=== PATIENT | female | born 1945 | race Caucasian/White ===

== ENCOUNTER 2019-02-21 10:44 | Inpatient (IN) | payer MEDICARE ==
[~2019-02-21] VITALS: Ht 165.1 cm; Wt 102.0 kg
[~2019-02-21 10:44] MED LIST: AMLO10 PO; CEPH500 PO; LOSARTAN-HCTZ1 EACH PO; METO50 PO; OMEP20ER PO
[2019-02-21 11:56] LABS: BASOPHILS ABSOLUTE AUTO 0.07 K/mm3 (0.00-0.23); BASOPHILS PERCENT AUTO 0 % (0-2); EOSINOPHILS ABSOLUTE AUTO 0.16 K/mm3 (0.00-0.68); EOSINOPHILS PERCENT AUTO 1 % (0-6); Hematocrit 46.7 % (33.0-51.0); Hemoglobin 15.6 g/dL (11.5-16.0); IMMATURE GRAN ABSOLUTE AUTO 0.21 K/mm3 (0.00-0.10); IMMATURE GRAN PERCENT AUTO 1 % (0-1); LYMPHOCYTES ABSOLUTE AUTO 3.98 K/mm3 (0.84-5.20); LYMPHOCYTES PERCENT AUTO 17 % (21-46); MONOCYTES ABSOLUTE AUTO 1.54 K/mm3 (0.16-1.47); MONOCYTES PERCENT AUTO 7 % (4-13); Mean Corpuscular HGB Conc 33.4 g/dL (31.5-36.5); Mean Corpuscular Volume 87 fL (80-100); Mean Platelet Volume 10.5 fL (9.1-12.4); NEUTROPHILS ABSOLUTE AUTO 17.05 K/mm3 (1.96-9.15); NEUTROPHILS PERCENT AUTO 74 % (41-73); Platelet Count 351 K/mm3 (150-400); RDW Coefficient Variation 13.1 % (11.7-14.2); RDW Standard Deviation 41.5 fL (35.1-46.3); Red Blood Cell Count 5.38 M/mm3 (3.80-5.20); White Blood Cell Count 23.01 K/mm3 (4.00-11.30)
[2019-02-21 12:18] LABS: Troponin I <0.015 ng/mL (0.000-0.040)
[2019-02-21 12:19] LABS: Alanine Aminotransfer (ALT/SGP 20 U/L (12-78); Albumin, Blood 3.6 g/dL (3.4-5.0); Alk Phos 109 U/L (50-136); Anion Gap 7 mmol/L (6-16); Aspartate Aminotrans (AST/SGOT 14 U/L (12-37); Bilirubin, Total 0.8 mg/dL (0.1-1.0); Blood Urea Nitrogen 20 mg/dL (8-24); Bun/Creatinine Ratio 17.7 (12.0-20.0); CO2, Blood 30 mmol/L (21-32); Calcium, Blood 9.6 mg/dL (8.5-10.1); Chloride, Blood 88 mmol/L (98-108); Creatinine, Blood 1.13 mg/dL (0.40-1.00); Globulin, Blood 3.6 g/dL (2.2-4.0); Glomerular Filtration Rate 50 (60-); Glucose, Blood 118 mg/dL (70-99); Potassium, Blood 3.5 mmol/L (3.5-5.5); Sodium, Blood 125 mmol/L (136-145); Total Protein, Blood 7.2 g/dL (6.4-8.2)
[2019-02-21] MEDS ORDERED: BUDE6HFA INH (13:00)
[2019-02-21] MEDS ORDERED: ALBU3IS NEB (13:00)
[2019-02-21] MEDS ORDERED: Flonase 0.05% N16 GM (13:00)
[2019-02-21] MEDS ORDERED: Ventolin/Prove6.7 GM INH (13:01)
[2019-02-21] MEDS ORDERED: ATORVASTATIN CA10 MG PO (13:01)
--- NOTE | 2019-02-21 18:33 | NUR ---
SHIFT SUMMARY ELIE ARRIVED FROM ER THIS AFTERNOON. COMPLAINED OF BACK PAIN, BUT TYLENOL AND IBUPROFEN AND HEAT WORKED WELL. ON 2.5L OXYGEN (BASELINE). SBA TO BR. HAD BM THIS SHIFT. TOOK MEDS PRESCRIBED. CALL LIGHT IN REACH, WCTM
--- NOTE | 2019-02-21 22:45 | NUR ---
spoke to Rashida Nichols NP per patient requesting her prilosec as she takes it at home at bedtime. received orders per EMAR
[2019-02-22 04:53] LABS: Hemoglobin 14.5 g/dL (11.5-16.0); Mean Corpuscular HGB 29.3 pg (26.0-34.0); Mean Corpuscular HGB Conc 34.5 g/dL (31.5-36.5); Mean Corpuscular Volume 85 fL (80-100); Mean Platelet Volume 10.5 fL (9.1-12.4); Platelet Count 330 K/mm3 (150-400); RDW Coefficient Variation 13.1 % (11.7-14.2); RDW Standard Deviation 40.1 fL (35.1-46.3); Red Blood Cell Count 4.95 M/mm3 (3.80-5.20); White Blood Cell Count 16.11 K/mm3 (4.00-11.30)
[2019-02-22 05:17] LABS: Calcium, Blood 9.4 mg/dL (8.5-10.1); Creatinine, Blood 1.39 mg/dL (0.40-1.00)
--- NOTE | 2019-02-22 17:14 | NUR ---
SUMMARY PT SITTING UP AT THE BEDSIDE WATCHING TV AND TALKING ON THE PHONE, PT HAS BEEN MOSTLY INDEPENDENT IN THE ROOM, PLEASANT AND COOPERATIVE WITH CARE, USES THE CALL LIGHT APPROPRIATELY, REMAINS ON 2.5L NC, VSS, NO ACUTE CHANGES, WILL CONT TO MONITOR
[2019-02-23 05:07] LABS: Hemoglobin 13.5 g/dL (11.5-16.0); Mean Corpuscular HGB Conc 34.6 g/dL (31.5-36.5); Mean Corpuscular Volume 84 fL (80-100); Mean Platelet Volume 10.3 fL (9.1-12.4); Platelet Count 298 K/mm3 (150-400); RDW Coefficient Variation 12.9 % (11.7-14.2); RDW Standard Deviation 39.3 fL (35.1-46.3); Red Blood Cell Count 4.66 M/mm3 (3.80-5.20); White Blood Cell Count 24.34 K/mm3 (4.00-11.30)
[2019-02-23 05:34] LABS: Bun/Creatinine Ratio 29.1 (12.0-20.0); Calcium, Blood 8.7 mg/dL (8.5-10.1); Creatinine, Blood 1.1 mg/dL (0.40-1.00); Potassium, Blood 4.4 mmol/L (3.5-5.5)
--- NOTE | 2019-02-23 07:36 | NUR ---
PATIENT DID NOT TOLERATE IVF WELL. SHE WASNT ABLE TO BE STILL AND LET THEM RUN, AND BECAME MORE AND MORE IRRITABLE THEN IRATE THE EVENRING WENT ON. FINALLY THE IVF WERE STOPPED AT HER INSISTANCE.. SHE IS NOW RESTING MORE CALMLY. LUNG SOUNDS WERE WHEEZEY T/O
--- NOTE | 2019-02-23 17:10 | NUR ---
SUMMARY PT RESTING QUIETLY IN BED, WAKES EASILY, HAS BEEN INDEPENDENT IN THE ROOM, PLEASANT AND COOPERATIVE WITH CARE, ON 2L NC BASELINE, CARE MANAGEMENT HAS BEEN IN TO TALK WITH THE PT, VSS, NO ACUTE CHANGES, WILL CONT TO MONITOR
--- NOTE | 2019-02-23 17:13 | NUR ---
I SAT PATIENT UP FOR SHOWER YESTERDAY. FIRST SHE SAID WAIT UNTIL DONE WITH BREATHING TREATMENT THEN SHE SAID WAIT UNTIL 2PM AND AT 2PM SHE SAID HER DAUGHTER HAD HER TOO UPSET TO SHOWER. TODAY I HAD PATIENT SAT UP FOR SHOWER AND SHE SAID SHE WAS WAITING FOR FAMILY TO BRING HER CLOTHES. FAMILY NEVER BROUGHT HER CLOTHES AND PATIENT WOULD NOT TAKE HER SHOWER.
--- NOTE | 2019-02-23 18:39 | NUR ---
FALL PT WALKING IN HALLS TO VISIT, DESPITE REPEATED REMINDERS FOR HER TO STAY IN HER ROOM, PT WITH BAGGY PANTS AND OXYGEN TUBING, PT FELL, IT WAS WITNESSED, DR CHARLES NOTIFIED, DIP FILLER'S NOTIFIED, NO APPARENT INJURY
--- NOTE | 2019-02-24 02:03 | NUR ---
CARDIAC: PATIENT CONTINUES TO HAVE BRADYCARDIA 48-58 DURING SLEEP, MAINTAINS SATS IN MID 90'S ON 2.[address] MUNIZ IS NOTIFIED OF LOPRESSOR BEING HELD AT 2100 AND CONTINUED BRADICARDIA. NO NEW ORDERS, CONTINUE TO MONITOR WITH CONT. PULSE OX.
[2019-02-24 05:40] LABS: Bun/Creatinine Ratio 27.4 (12.0-20.0); Calcium, Blood 9.1 mg/dL (8.5-10.1); Creatinine, Blood 1.06 mg/dL (0.40-1.00); Potassium, Blood 4.6 mmol/L (3.5-5.5)
--- NOTE | 2019-02-24 07:24 | NUR ---
SHIFT SUMMARY: PATIENT IS A&OX4, REPORTED OCCIPITAL PAIN 5/10 AT START OF SHIFT, S/P FALL. NEURO ASSESSMANT IS WNL, PO TYLENOL IS GIVEN WITH GOOD EFFECT, NO FURTHER C/O OF OCCIPITAL PAIN AND NEURO ASSESSMENT REMAINS STABLE. PATIENT IS NON COMPLIANT WITH FALL PRECAUTIONS AND DOES NOT RING CALL JAED FOR ASSIST OOB. SETS BED ALARM OF FRQUENTLY. PATIENT IS REPEATEDLY RE-ORIENTED TO THE CALL JADE. VS ARE STABLE AND FALL PRECAUTIONS ARE MAINTAINED.
--- NOTE | 2019-02-24 18:08 | NUR ---
NO ACUTE CHANGES. PATIENT WAITING FOR PLACEMENT. PATIENT IS ALERT AND ORIENTED AND ABLE TO EXPRESS ANY NEEDS. SHE SHOULD BE A ONE ASSIST WITH FFW TO PREVENT FALLS BUT OFTEN JUST GETS UP ON HER OWN AND WONT USE WALKER WITHOUT CONTSTANT REMINDERS. CALL LIGHT WITHIN REACH
--- NOTE | 2019-02-25 06:41 | NUR ---
SHIFT SUMMARY: PATIENT CONTINUES TO BE SOB WITH ACTIVITY AND IS OBSERVED TO HAVE NASAL CANULA ON TOP OF HER HEAD MANY TIMES DURING SHIFT. MAINTAIN SATS IN MID 90'S ON 2.5L NC. REPORTING LOW BACK PAIN AND REFUSES TYLENOL, AQUA PAD IS UTILIZED FOR EFFECTIVE PAIN CONTROL. PATIENT REPORTS NOT SLEPPING WELL THIS SHIFT.
[2019-02-25 08:57] LABS: Bun/Creatinine Ratio 22.3 (12.0-20.0); Creatinine, Blood 1.03 mg/dL (0.40-1.00); Potassium, Blood 3.9 mmol/L (3.5-5.5)
--- NOTE | 2019-02-25 09:22 | NUR ---
she said she fell three days ago, and it was an accident she didnt mean.
--- NOTE | 2019-02-25 16:27 | NUR ---
PATIENT IS A/O AND ABLE TO EXPRESS ANY NEEDS. SHE IS ABLE TO AMBULATE FROM BED TO CHAIR AND AROUND ROOM WHILE ON O2 AND WITH HER FFW. SHE HAS HAD A HEARTY APPETITIE TODAY AND NO COMPLAINTS. NO ACUTE CHANGES WE WAIT FOR PLACEMENT.
--- NOTE | 2019-02-25 20:13 | NUR ---
1930: ASSUMED CARE OF PATIENT. PT SITTING IN CHAIR WATCHING TV. EXCITED TO BE D/C TO [facility] TOMORROW. SON WILL BE COMING IN THE AM. PATIENT MEDS ARE IN PHARMACY AND NEEDS TO RECEVIE THOSE BEFORE D/C. PT DENIES PAIN, NO APPARENT DISTRESS. PT ASKED FOR TYLENOL AT BEDTIME TO HELP HER SLEEP. BED LOW AND LOCKED, CALL JADE WITHIN REACH.
--- NOTE | 2019-02-26 05:56 | NUR ---
SHIFT SUMARY: PATIENT SLEPT LITTLE THIS SHIFT. UP FREQUETLY TO BRP. PT RECEIVED TYLENOL FOR GENERALIZED ACHES. PLEASANT AND COOPERATIVE WITH CARE. BED LOW AND LOCKED AND CALL JADE WITHIN REACH.
[2019-02-26] MEDS ORDERED: LOSA50 PO (10:59)
[2019-02-26] MEDS ORDERED: LEVOFLOXACIN750 MG PO (10:59)
[2019-02-26] MEDS ORDERED: Nicotine Gum2 MG PO (11:00)
[2019-02-26] MEDS ORDERED: NICO21TP TOP (11:00)
[2019-02-26] MEDS ORDERED: Prednisone10 MG PO (11:01)
--- NOTE | 2019-02-26 12:59 | NUR ---
DISCHARGE INSTRUCTIONS REVIEWED WITH PT AND SON. IV DC'D INTACT. RX FAXED TO [facility]. [facility] DELIVERED 02 TANK X2. PT DISCHARGED HOME WITH SON AT 1257 ESCORTED OUT VIA W/C.
== END 2019-02-26 12:47 | disposition home or self-care (01) | DRG 871 ==
LOC: ER 10:44 → MEDS 13:54 → ENPENDDIS 02-26 09:46 → MEDS 02-26 12:47
PROVIDERS: Emergency Medicine; ADMIT Internal Medicine
DX: A41.1 Sepsis due to other specified staphylococcus (principal); J96.21 Acute and chronic respiratory failure with hypoxia; J18.1 Lobar pneumonia, unspecified organism; J44.0 Chronic obstructive pulmonary disease with (acute) lower respiratory infection; J44.1 Chronic obstructive pulmonary disease with (acute) exacerbation; E87.1 Hypo-osmolality and hyponatremia; I50.32 Chronic diastolic (congestive) heart failure; R65.20 Severe sepsis without septic shock; E86.0 Dehydration; I11.0 Hypertensive heart disease with heart failure; K21.9 Gastro-esophageal reflux disease without esophagitis; F17.210 Nicotine dependence, cigarettes, uncomplicated; E78.5 Hyperlipidemia, unspecified; Z99.81 Dependence on supplemental oxygen; Z79.51 Long term (current) use of inhaled steroids; Z79.899 Other long term (current) drug therapy
CPT/HCPCS: 36415; 71046; 80048; 80053; 83605; 83880; 84484; 85025; 85027; 87040; 87070; 87077; 87186; 87205; 93005; 93010; 94010; 94640; 94664; 94667; 94760; 96365; 96367; 97110; 97161; 97530; 98960; 99284-25; 99407; A9270; J0456; J0696; J1650; J2930; J7030; J7050; J7512

== ENCOUNTER → 2019-03-18 | Outpatient (CLI) | payer MEDICARE ==
[~2019-03-18] MED LIST changes: +ALBU3IS NEB; +ATORVASTATIN CA10 MG PO; +BUDE6HFA INH; +Flonase 0.05% N16 GM; +LEVOFLOXACIN750 MG PO; +LOSA50 PO; +NICO21TP TOP; +Nicotine Gum2 MG PO; +Prednisone10 MG PO; +Ventolin/Prove6.7 GM INH
[2019-03-18 19:21] LABS: Albumin, Blood 3.1 g/dL (3.4-5.0); Anion Gap 4 mmol/L (6-16); Blood Urea Nitrogen 12 mg/dL (8-24); Bun/Creatinine Ratio 10.8 (12.0-20.0); CO2, Blood 28 mmol/L (21-32); Calcium, Blood 9.2 mg/dL (8.5-10.1); Chloride, Blood 106 mmol/L (98-108); Creatinine, Blood 1.11 mg/dL (0.40-1.00); Glomerular Filtration Rate 51 (60-); Glucose, Blood 88 mg/dL (70-99); Phosphorus, Blood 3.2 mg/dL (2.5-4.9); Potassium, Blood 4.1 mmol/L (3.5-5.5); Sodium, Blood 138 mmol/L (136-145)
[2019-03-18 19:28] LABS: Creatinine, Urine Random 99.4 mg/dL (27.00-270.00)
== END ==
LOC: LAB 18:26 → LAB SHORT 18:26
PROVIDERS: Internal Medicine
DX: M79.89 Other specified soft tissue disorders (principal)
CPT/HCPCS: 80069; 82570; 84300

== ENCOUNTER → 2021-04-10 | Outpatient (CLI) | payer MEDICARE | END | disposition home or self-care (01) | LOC: LAB SHORT 09:52 | DX: I10 Essential (primary) hypertension (principal) | CPT/HCPCS: 82043 ==

== ENCOUNTER → 2023-05-21 | Outpatient (CLI) | payer OTHER | END | disposition home or self-care (01) | LOC: LAB SHORT 11:53 → LAB 11:53 | DX: N39.0 Urinary tract infection, site not specified (principal) | CPT/HCPCS: 87077; 87086; 87186 ==

== ENCOUNTER → 2024-01-13 | Outpatient (CLI) | payer OTHER | END | disposition home or self-care (01) | LOC: LAB SHORT 12:45 → LAB 12:45 | DX: N39.0 Urinary tract infection, site not specified (principal) | CPT/HCPCS: 87077; 87086; 87186 ==

== ENCOUNTER 2025-02-06 15:29 | Inpatient (IN) | payer MEDICARE, OTHER ==
[~2025-02-06] VITALS: Ht 165.1 cm; Wt 94.8 kg
[2025-02-06] MEDS ORDERED: Ipratropium/Albuterol SulF 2.5-0.5MG/3 ML Amp INH ONE (15:45)
[2025-02-06 16:01] LABS: BASOPHILS ABSOLUTE AUTO 0.04 K/mm3 (0.00-0.23); BASOPHILS PERCENT AUTO 0 % (0-2); EOSINOPHILS ABSOLUTE AUTO 0.00 K/mm3 (0.00-0.68); EOSINOPHILS PERCENT AUTO 0 % (0-6); Hematocrit 42.1 % (33.0-51.0); Hemoglobin 13.8 g/dL (11.5-16.0); IMMATURE GRAN ABSOLUTE AUTO 0.05 K/mm3 (0.00-0.10); IMMATURE GRAN PERCENT AUTO 0 % (0-1); LYMPHOCYTES ABSOLUTE AUTO 1.10 K/mm3 (0.84-5.20); LYMPHOCYTES PERCENT AUTO 9 % (21-46); MONOCYTES ABSOLUTE AUTO 0.88 K/mm3 (0.16-1.47); MONOCYTES PERCENT AUTO 7 % (4-13); Mean Corpuscular HGB Conc 32.8 g/dL (31.5-36.5); Mean Corpuscular Volume 91 fL (80-100); NEUTROPHILS ABSOLUTE AUTO 10.67 K/mm3 (1.96-9.15); NEUTROPHILS PERCENT AUTO 84 % (41-73); NRBC ABSOLUTE 0.00 K/mm3 (0.00-0.02); NRBC Auto 0.0 /100 WBC (0.0-0.2); Platelet Count 240 K/mm3 (150-400); RDW Coefficient Variation 13.1 % (11.7-14.2); RDW Standard Deviation 43.4 fL (35.1-46.3)
[2025-02-06] MEDS ORDERED: NS 1,000 ML IV SCH ×2 (16:15→18:55)
[2025-02-06 16:22] LABS: Source, Urine Straight Cath
[2025-02-06 16:22] LABS: Alanine Aminotransfer (ALT/SGP 13.0 U/L (12-78); Albumin, Blood 3.1 g/dL (3.4-5.0); Albumin/Globulin Ratio 0.8 (0.8-1.8); Anion Gap 6.0 mmol/L (3-11); Aspartate Aminotrans (AST/SGOT 22.0 U/L (12-37); Bilirubin, Total 0.6 mg/dL (0.1-1.0); Blood Urea Nitrogen 34.0 mg/dL (8-24); CO2, Blood 41.0 mmol/L (21-32); Calcium, Blood 11.1 mg/dL (8.5-10.1); Chloride, Blood 90.0 mmol/L (98-108); Creatinine, Blood 1.02 mg/dL (0.40-1.00); Globulin, Blood 4.1 g/dL (2.2-4.0); Glucose, Blood 103.0 mg/dL (70-99); Potassium, Blood 3.3 mmol/L (3.5-5.5); Sodium, Blood 134.0 mmol/L (136-145); Total Protein, Blood 7.2 g/dL (6.4-8.2)
[2025-02-06 16:27] LABS: Bilirubin, Urine Neg (Neg); Color, Urine Brown (P-Yellow); Glucose Qualitative, Urine Neg (Neg); Ketones, Urine Neg (Neg); Leukocyte Esterase, Urine 3+ (Neg); Protein, Urine 3+ (Neg); Specific Gravity, Urine 1.015 (1.003-1.022); Urobilinogen, Urine NORM (Normal)
[2025-02-06 16:41] LABS: White Blood Cells, Urine TNTC /hpf (0-5)
[2025-02-06 16:42] LABS: Red Blood Cells, Urine 25-50 /hpf (0-2)
[2025-02-06] MEDS ORDERED: Diltiazem HCl 5 MG / ML 5ML Vial IV ONE ×2 (17:10→18:20)
[2025-02-06] MEDS ORDERED: CefTRIAXone Sodium 1,000 MG in NS 50 ML IV ONE (17:10)
[2025-02-06] MEDS ORDERED: HYDCHL25 PO (18:45)
[2025-02-06] MEDS ORDERED: ATOR10 PO (18:45)
[2025-02-06] MEDS ORDERED: MYRBETRIQ25 MG PO (18:46)
[2025-02-06] MEDS ORDERED: METOPROLOL TART5010 PO (18:46)
[2025-02-06] MEDS ORDERED: ESCI10 PO (18:46)
[2025-02-06] MEDS ORDERED: OMEP20ER PO (18:47)
[2025-02-06] MEDS ORDERED: FLU VACC TS2025(65UP)/MF59C/PF 45 MCG/0.5 ML SYRINGE IM SCH (18:55)
[2025-02-06] MEDS ORDERED: Ondansetron HCl 2 MG / ML 2ML Vial IV PRN (18:55)
[2025-02-06] MEDS ORDERED: Albuterol 2.5 MG/3 ML VIAL INH PRN (19:00)
[2025-02-06] MEDS ORDERED: Metoprolol Tartrate 1 MG/ML 5 ML VIAL IV ONE (19:00)
[2025-02-06] MEDS ORDERED: NS 1,000 ML IV ONE (19:00)
[2025-02-06] MEDS ORDERED: Formoterol/Mometasone MDI 5/200 mcg 13 GM INH SCH (19:20)
[2025-02-06] MEDS ORDERED: Potassium Chl 20MEQ/Water100ML 100 ML IV STA (19:32)
[2025-02-06] MEDS ORDERED: Amiodarone HCl 450 MG in NS 250 ML IV SCH (20:25)
[2025-02-06] MEDS ORDERED: Metoprolol Tartrate 1 MG/ML 5 ML VIAL IV PRN (20:45)
[2025-02-06] MEDS ORDERED: Lactobacil 2-S.Thermo-Bifido 1 1 Cap PO SCH (21:00)
[2025-02-06] MEDS ORDERED: Dose Adjust by Pharmacy XX STA (21:14)
[2025-02-06] MEDS ORDERED: Heparin Sodium 5000 Units/ML 1ML MDV IV ONE (21:15)
[2025-02-06 21:30] LABS: Anti-Xa UFH, PHA Monitoring <0.10 IU/mL; Prothrombin Time Results 12.5 Sec (9.7-11.5)
[2025-02-06] MEDS ORDERED: Heparin Sodium,Porcine/0.5 NS 500 ML IV SCH (21:30)
[2025-02-06 22:04] LABS: pH Blood Venous 7.45 (7.34-7.37)
[2025-02-06 23:00] VITALS: BP 91/69
[2025-02-06 23:15] VITALS: BP 74/53
[2025-02-06 23:21] VITALS: BP 74/53
[2025-02-06 23:45] VITALS: BP 107/62
[2025-02-07] VITALS (63 sets, daily range): BP systolic 78–142; BP diastolic 42–113
[2025-02-07 04:03] LABS: BASOPHILS ABSOLUTE AUTO 0.06 K/mm3 (0.00-0.23); BASOPHILS PERCENT AUTO 1 % (0-2); EOSINOPHILS ABSOLUTE AUTO 0.01 K/mm3 (0.00-0.68); EOSINOPHILS PERCENT AUTO 0 % (0-6); Hematocrit 33.3 % (33.0-51.0); Hemoglobin 10.9 g/dL (11.5-16.0); IMMATURE GRAN ABSOLUTE AUTO 0.05 K/mm3 (0.00-0.10); IMMATURE GRAN PERCENT AUTO 0 % (0-1); LYMPHOCYTES ABSOLUTE AUTO 1.70 K/mm3 (0.84-5.20); LYMPHOCYTES PERCENT AUTO 13 % (21-46); MONOCYTES ABSOLUTE AUTO 1.63 K/mm3 (0.16-1.47); MONOCYTES PERCENT AUTO 12 % (4-13); Mean Corpuscular HGB Conc 32.7 g/dL (31.5-36.5); Mean Corpuscular Volume 92 fL (80-100); NEUTROPHILS ABSOLUTE AUTO 9.69 K/mm3 (1.96-9.15); NEUTROPHILS PERCENT AUTO 74 % (41-73); NRBC ABSOLUTE 0.00 K/mm3 (0.00-0.02); NRBC Auto 0.0 /100 WBC (0.0-0.2); Platelet Count 247 K/mm3 (150-400); RDW Coefficient Variation 13.3 % (11.7-14.2); RDW Standard Deviation 45.1 fL (35.1-46.3)
[2025-02-07 04:20] LABS: Alanine Aminotransfer (ALT/SGP 12.0 U/L (12-78); Albumin, Blood 2.2 g/dL (3.4-5.0); Albumin/Globulin Ratio 0.7 (0.8-1.8); Anion Gap 6.0 mmol/L (3-11); Aspartate Aminotrans (AST/SGOT 19.0 U/L (12-37); Bilirubin, Total 0.3 mg/dL (0.1-1.0); Blood Urea Nitrogen 34.0 mg/dL (8-24); CO2, Blood 35.0 mmol/L (21-32); Calcium, Blood 9.7 mg/dL (8.5-10.1); Chloride, Blood 98.0 mmol/L (98-108); Creatinine, Blood 1.06 mg/dL (0.40-1.00); Globulin, Blood 3.2 g/dL (2.2-4.0); Glucose, Blood 120.0 mg/dL (70-99); Magnesium, Blood 1.8 mg/dL (1.6-2.4); Potassium, Blood 3.3 mmol/L (3.5-5.5); Sodium, Blood 136.0 mmol/L (136-145); Total Protein, Blood 5.4 g/dL (6.4-8.2)
[2025-02-07] MEDS ORDERED: Dose Adjust by Pharmacy XX STA ×3 (04:35→18:52)
[2025-02-07] MEDS ORDERED: Heparin Sodium 5000 Units/ML 1ML MDV IV ONE ×2 (04:40→12:00)
--- NOTE | 2025-02-07 06:20 | NUR ---
SHIFT SUMMARY: PT ARRIVED FROM THE ED IN AFIB WITH RVR WITH NEOSYNEPHRINE AND HEPARIN GTT RUNNING. SHE WAS COOPERATIVE AND ALERT AND ORIENTED BUT FATIGUED. SHE SOON CONVERTED INTO A SINUS RHYTHM AT AN APPROPRIATE RATE. CONTINUES TO REQUIRE PRESSOR TO MAINTAIN MAP >65 BUT IS IMPROVING. PT IS ON 3LPM NC, UNKNOWN WHAT HER BASELINE REQUIREMENT IS AT HOME. SLING IS IN PLACE ON PATIENT'S LEFT ARM. SHE DOES NOT COMPLAIN OF PAIN TO THE ARM BUT RATHER NEW TRANSIENT KNEE PAIN IN BOTH KNEES.
[2025-02-07] MEDS ORDERED: Polyethylene Glycol 3350 17 gm PO PRN (07:15)
--- NOTE | 2025-02-07 08:00 | NUR ---
ASSUMPTION OF CARE RECEIVED REPORT FROM [facility] NURSE. PT IS DROWSY BUT AROUSABLE TO NOXIOUS STIMULI. PT A&0X4, FOLLOWS COMMANDS AND USES CALL LIGHT APPROPRIATELY. PT IS ON 3L NC, SPO2 >92% TOLERATING WELL. PT DENIES SOB/CHEST PAIN. PT IS IN NSR WITH PACS, PT HAS EPISODES OF AFIB AND CONVERTS BACK INTO NSR. HR IN 80-90S, MAP >65. PT ON 20 OF JARRETT, TITRATING OFF. PT DENIES ABD PAIN. PT HAS HX OF PROLAPSED UTERUS. DENNEY CATH PATENT AND DRAINING TO GRAVITY. PT HAS LEFT HUMERAL NECK FRACTURE, SLING ON. PT REPORTS PAIN WITH REPOSITIONING. CALL LIGHT WITHIN REACH AND NO NEEDS EXPRESSED AT THIS TIME.
--- NOTE | 2025-02-07 17:45 | NUR ---
CALL TO HOME HEALTH AIDE [facility] TO NOTIFY CT SCAN RESULTS AVAILABLE. DR WYMAN RETURNED CALL. HE WILL REVIEW IMAGING IF NO DISPLACEMENT PLAN FOR CONSERVATIVE MANAGEMENT WITH SLING AND PLAN FOR FOLLOW UP OUTPATIENT WITH ORTHO.
[2025-02-07] MEDS ORDERED: CefTRIAXone Sodium 1,000 MG in NS 100 ML IV SCH (18:00)
--- NOTE | 2025-02-07 18:11 | NUR ---
CALLED TO NOTIFIED DR FAITH THAT PT UTERINE PROLAPSE APPEARS DRY WITH A SMALL WOUND LOCATED POSTERIORLY. AREA WAS CLEANSED WITH SALINE AND APPLIED [place] JELLY TO MOISTEN. PT ALSO HAS REDNESS AND WOUND TO HER GLUTEAL CLEFT. AREAS WAS ALSO CLEANSED AND BARRIER CREAM APPLIED PT NOT FINISHED HAVING BM. SOME TENDERNESS WITH WIPING OF GLUTEAL CLEFT. DENIED ANY PAIN TO UTERINE PROLAPSE. SHE STATES THAT HER UTERUS HAS BEEN PROLAPSED FOR SOME TIME AND THAT HER OB-RECEIVING DOCK CHECKER IS LOCATED IN [place]. SHE STATES THAT SHE APPLYS BAG BALM TO IT AT HOME TO KEEP IT MOIST. DISUSSED WITH DR FAITH. TELEPHONE ORDER TO PLACED WOUND CARE ORDER TO CLEANSE Q SHIFT WITH SALINE AND APPLY [place] JELLY TO KEEP UTERINE PROLAPSE MOIST. PHOTOS LOCATED IN CHART
--- NOTE | 2025-02-07 18:20 | NUR ---
SHIFT SUMMMARY PT A&OX4, FOLLOWS COMMANDS AND USES CALL LIGHT APPROPRIATELY. PT ON 2L NC, TOLERATING WELL SPO2 >92%. LUNG SOUNDS DIMINISHED IN BLL. HR IN 80-90S, MAP >65. JARRETT OFF AT 0815, ONE TIME DOSE OF MIDODRINE 2.5MG GIVEN FOR SBP<100. PT IN SINUS ARRYTHMIA WITH PACS, RUNS OF AFIB. PT DENIES ABD PAIN, TWO BM DURING SHIFT. DENNEY CATH IN PLACE PATENT AND DRAINING TO GRAVITY. PT HAS LEFT HUMERAL NECK FRACTURE, XRAY AND CT DONE. CONSULTED ORTHO. SLING IN PLACE. PT HAS HX OF CHRONIC PROLAPSED UTERUS, PHOTOS IN CHART. NOTIFIED DR. FAITH. PT HAS LAC AND LWR, WNL. HEPARIN DRIP RUNNING. CALL LIGHT WITHIN REACH AND NO NEEDS EXPRESSED AT THIS TIME.
[2025-02-07] MEDS ORDERED: Docusate Sodium/Senna 1 Tab PO SCH (21:00)
[2025-02-08] VITALS (11 sets, daily range): BP systolic 101–138; BP diastolic 59–92
[2025-02-08] MEDS ORDERED: Clarify Drug Order XX ONE (01:30)
--- NOTE | 2025-02-08 05:15 | NUR ---
SHIFT SUMMARY: PTS CONDITION IS LARGELY UNCHANGED, THERE WERE NO SIGNIFICANT OVERNIGHT EVENTS. PT HAS DENIED PAIN THROUGHOUT NIGHT. HER LEFT ARM HAS REMAINED IN THE SLING. WOUND CARE PERFORMED. PT OTHERWISE SLEPT. VITALS REMAIN STABLE.
[2025-02-08 07:15] LABS: Hematocrit 30.2 % (33.0-51.0); Hemoglobin 9.6 g/dL (11.5-16.0); Mean Corpuscular HGB Conc 31.8 g/dL (31.5-36.5); Mean Corpuscular Volume 94 fL (80-100); NRBC ABSOLUTE 0.00 K/mm3 (0.00-0.02); NRBC Auto 0.0 /100 WBC (0.0-0.2); Platelet Count 224 K/mm3 (150-400); RDW Coefficient Variation 13.7 % (11.7-14.2); RDW Standard Deviation 46.7 fL (35.1-46.3)
--- NOTE | 2025-02-08 07:28 | NUR ---
TRANSFER TO PCU PT TRANFERRED FROM ICU TO PCU AT THE BEGINNING OF THIS SHIFT. REPORT RECIEVED FROM SALTY PATTERN LAYOUT WORKER. PT TRANFERRED IN HOSPITAL BED, A&0 X4, 3L O2 NC IN USE. VITALS COMPLETED, STABLE. SEE NOTES FOR UPDATES.
[2025-02-08 07:37] LABS: Albumin, Blood 2.0 g/dL (3.4-5.0); Anion Gap 8 mmol/L (3-11); Blood Urea Nitrogen 27 mg/dL (8-24); CO2, Blood 30 mmol/L (21-32); Calcium, Blood 9.3 mg/dL (8.5-10.1); Chloride, Blood 102 mmol/L (98-108); Creatinine, Blood 0.98 mg/dL (0.40-1.00); Ferritin, Serum 303 ng/mL (8-252); Glucose, Blood 99 mg/dL (70-99); Magnesium, Blood 1.9 mg/dL (1.6-2.4); Phosphorus, Blood 2.5 mg/dL (2.5-4.9); Potassium, Blood 3.7 mmol/L (3.5-5.5); Sodium, Blood 136 mmol/L (136-145); Total Iron Binding Capacity 194 ug/dL (250-450)
[2025-02-08] MEDS ORDERED: Cholecalciferol 1000 Unit Tablet (=25MCG) PO SCH (10:00)
--- NOTE | 2025-02-08 19:49 | NUR ---
SHIFT SUMMARY PT IS A&O X3-4, OCCASIONALLY FORGETTING DATE. PT IS CHAIRFAST, RECIEVES Q2 REPOSITIONING. SHE WAS ABLE TO STAND/PIVOT TO BSC TODAY WITH 2 MOD ASSIST AND GAIT BELT. PT USED 2L O2 NC T/O SHIFT. SINUS RHYTHM MAINTAINED WITH STABLE BLOOD PRESSURES, MAP >65. PT HAS A DENNEY IN PLACE, DRAINING TO GRAVITY. CATH CARE PERFORMED THIS SHIFT. PT'S WOUNDS ON BUTTOCKS AND UTERINE PROLAPSE WERE CLEANED, PHOTOGRAPHED, AND HAVE WOUND CARE ORDERS IN JUN. OB WAS CONSULTED ABOUT THE UTERINE PROLAPSE AND DR. FAITH VIEWED PHOTOS IN CHART. CASTOR OIL ORDERED TO SATURATE PROLAPSE AND PREVENT IT FROM DRYING OUT. OBGYN WANTS PT TO BE SEEN MANINDER AFTER DISCHARGE. BILLING ASSOCIATE AWARE. REPORT GIVEN TO STAS GALEAS. NO FURTHER NOTES FROM THIS RN.
[2025-02-08] MEDS ORDERED: Miconazole Nitrate 2% 85 GM PWD TOP SCH (21:00)
[2025-02-09 03:53] VITALS: BP 122/66
--- NOTE | 2025-02-09 04:38 | NUR ---
SHIFT SUMMARY Uneventful shift. Pt remained on 2L O2(baseline). SR with frequent PACs, SBP 120s. 1 sm BM. [place] oil applied to uterine prolapse per order. Good UOP. Plan to continue to work with PT/OT to increase mobility
[2025-02-09 09:06] VITALS: BP 113/69
[2025-02-09 10:42] VITALS: BP 141/82
--- NOTE | 2025-02-09 12:39 | NUR ---
Pt assisted from bed to BSC and then to recliner before lunch. She had two episodes of stool incontinence this morning. After lunch she requested back to bed. Assisted to stand and pivot. Tolerating well.
[2025-02-09] MEDS ORDERED: Cephalexin500 M1 PO (13:42)
[2025-02-09] MEDS ORDERED: ELIQUIS5 M2 PO (13:42)
[2025-02-09] MEDS ORDERED: VITAMIN D5000 UNIT PO (13:43)
[2025-02-09] MEDS ORDERED: DULERA 100 MCG/13 GM INH (13:43)
[2025-02-09] MEDS ORDERED: CASTOR OIL TOP (13:44)
--- NOTE | 2025-02-09 14:58 | NUR ---
Pt today has been alert, oriented, and pleasantly cooperative. Got OOB this morning to use the BSC and tolerated well, working with OT. Assisted from BSC to recliner where she ate her lunch and then requested to use the BSC again. assisted back to bed afternoon. Hygiene care completed. Wound care done per orders, castor oil to the uterine prolapse and barrier cream and mepilex to her sacrum abrasion. [place] oil also applied to the round wound on uterine prolapse which occasionally is susceptible to fecal soiling as the pt is incontinent of stool. She has a baxter catheter which was placed possibly due to her wounds and the urinary incontinence. [facility] Attempted to call report to the SNF once, but only received voice mail so message was left.
== END 2025-02-09 14:24 | DRG 871 ==
LOC: ER 15:29 → ICUE 18:53 → PCU 18:53 → ERHOLD 18:53 → ICUE 22:40 → PCU 02-08 07:20
PROVIDERS: Emergency Medicine; Internal Medicine; Nurse Practitioner Acute Care; ADMIT Internal Medicine
PROC: 3E03329 Introduction of Other Anti-infective into Peripheral Vein, Percutaneous Approach (ICD-10-PCS; principal; 2025-02-06)
PROC: 3E033XZ Introduction of Vasopressor into Peripheral Vein, Percutaneous Approach (ICD-10-PCS; 2025-02-06)
DX: A41.9 Sepsis, unspecified organism (principal); R65.21 Severe sepsis with septic shock; S42.212A Unspecified displaced fracture of surgical neck of left humerus, initial encounter for closed fracture; J96.11 Chronic respiratory failure with hypoxia; N39.0 Urinary tract infection, site not specified; E66.01 Morbid (severe) obesity due to excess calories; J44.9 Chronic obstructive pulmonary disease, unspecified; I10 Essential (primary) hypertension; E78.5 Hyperlipidemia, unspecified; E87.6 Hypokalemia; E86.0 Dehydration; E83.52 Hypercalcemia; N81.4 Uterovaginal prolapse, unspecified; F17.210 Nicotine dependence, cigarettes, uncomplicated; I48.0 Paroxysmal atrial fibrillation; W18.30XA Fall on same level, unspecified, initial encounter; E55.9 Vitamin D deficiency, unspecified; D63.8 Anemia in other chronic diseases classified elsewhere; L89.152 Pressure ulcer of sacral region, stage 2; Z99.81 Dependence on supplemental oxygen; Z79.899 Other long term (current) drug therapy; Z68.33 Body mass index [BMI] 33.0-33.9, adult
CPT/HCPCS: 36415; 51702; 71045; 73030; 73060; 73200; 80053; 80069; 81001; 82306; 82728; 82803; 83540; 83550; 83605; 83735; 83880; 84145; 84436; 84443; 84484; 85025; 85027; 85520; 85610; 87040; 87077; 87086; 87186; 93005; 93010; 93306; 94640; 94664; 94762; 96361-59; 96365-59; 96375-59; 97161; 97165; 97530; 97535; 99285-25; A9270; J0282; J0456; J0696; J1644; J2371; J3480; J7030; J7050